=== PATIENT | male | born 1955 | race African-American/Black ===

== ENCOUNTER 2019-11-01 23:22 | Inpatient (IN) ==
[2019-11-02] MEDS ORDERED: TORADOL IV ONE (02:24)
[2019-11-02 02:25] LABS: ALB/GLOB RATIO 0.8; ALBUMIN 4.4 g/dL (3.5-5.0); CALCIUM 9.9 mg/dL (8.8-10.2); POTASSIUM 3.7 mmol/L (3.5-5.1); TOTAL BILIRUBIN 0.74 mg/dL (0.20-1.00)
--- NOTE | 2019-11-02 02:29 | PROVIDER DOCUMENTATION ---
This chart was entered by Kalee Elizabeth Scribe, acting as scribe for Mathew Carter MD. HPI-Abdominal Pain/GI Problem - General Source: patient - History of Present Illness-ABD Nature of Presenting Problems: Pt is a 64 yom who presents to the ED with a cc of severe RLQ abd pain that radiates to R testicle. States that the pain began this morning. Pt reports N/V that began 1 month prior to the abd pain. Reports occasional constipation. States that he cant keep food down. Abdominal Pain Onset Location: reports: RLQ (severe) Pain Radiation: reports: groin Quality of Pain: reports: aching, sharp Severity in ED: reports: mild Onset/Duration: reports: just prior to arrival Timing: reports: still present, constant Activities at Onset: reports: none Exposure to sick contacts?: No Modifying Factors: improves with: nothing Associated Symptoms: reports: nausea, vomiting, trouble walking Last BM: unsure Dark Stools Present?: reports: none noticed Rectal Bleeding: reports: none Rectal Pain: reports: none Emesis Description: reports: none Bruising or Bleeding Gums?: No Similar Symptoms Previously?: No Recently seen or treated by another doctor?: No <Mathew Carter - Last Filed: 11/02/19 02:33> <Robby Ortiz - Last Filed: 11/02/19 06:55> - General Chief Complaint: Abdominal Pain Stated Complaint: PAIN IN LEFT SIDE OF STOMACH Time Seen by Provider: 11/02/19 00:41 Allergies/Adverse Reactions: Patient Allergies Allergy/AdvReac Type Severity Reaction Status Date / Time No Known Allergies Allergy Verified 07/04/19 17:18 Home Medications: Home Medication List Medication Instructions Recorded Confirmed Last Taken Type Aspirin EC 81 mg PO DAILY 03/14/15 07/04/19 07/06/18 08:00 History 81 mg ATORVAstatin [Lipitor] 20 mg PO QHS #30 tablet 03/16/15 07/04/19 07/05/18 20:00 Rx 20 mg Folic Acid 1 mg PO DAILY tablet 11/27/17 07/04/19 07/06/18 08:00 Rx 1mg Thiamine [Vitamin B-1] 100 mg PO DAILY tablet 11/27/17 07/04/19 07/06/18 08:00 Rx 100 mg Potassium Chloride [Klor-Con M20] 1 tab PO DAILY 01/15/18 07/04/19 07/06/18 08:00 History 20 mEq Isosorbide Mononitrate E.r. [Imdur] 30 mg PO DAILY #90 tab 01/20/18 07/04/19 07/06/18 08:00 Rx 30mg Amiodarone [Cordarone] 200 mg PO DAILY #90 tab 02/26/18 07/04/19 07/06/18 08:00 Rx 200 mg Metoprolol Succinate E.r. [Toprol 25 mg PO DAILY #90 tab 02/26/18 07/04/19 07/06/18 08:00 Rx Xl] 25 mg Furosemide [Lasix] 40 mg PO DAILY #30 tab 07/08/18 07/04/19 Unknown Rx LISINOpril [Prinivil] 5 mg PO BID tablet 07/08/18 07/04/19 Unknown Rx Tramadol HCl [Ultram] 50 mg PO 4XDAY PRN PRN #12 tab 07/04/19 Unknown Rx Review of Systems - Adult - REVIEW OF SYSTEMS - ADULT Constitutional: reports: no symptoms reported Eyes: reports: no symptoms reported Ears, Nose, Mouth & Throat: reports: no symptoms reported Cardiovascular: reports: no symptoms reported Respiratory: reports: no symptoms reported Gastrointestinal: reports: see HPI, abdominal pain (severe RLQ), constipation (occasional), nausea, vomiting (prior to pain) Genitourinary: reports: no symptoms reported Musculoskeletal: reports: no symptoms reported Integumentary: reports: no symptoms reported Neurological: reports: no symptoms reported Psychiatric: reports: no symptoms reported Endocrine: reports: no symptoms reported Hematologic/Lymphatic: reports: no symptoms reported Allergic/Immunologic: reports: no symptoms reported All Other Systems: Reviewed and Negative <Mathew Carter - Last Filed: 11/02/19 02:33> Past History - Adult - PAST MEDICAL HISTORY-ADULT Major Childhood Illnesses: reports: denies history Cardiovascular: reports: CAD, HTN, hyperlipidemia Respiratory: reports: COPD, pneumonia Gastrointestinal: reports: hepatitis (C) Obstetrical/Gynecological: reports: denies history Genitourinary: reports: denies history Musculoskeletal: reports: denies history Neurological: reports: denies history Endocrine/Immune: reports: denies history Other Conditions: reports: denies history - PRIOR SURGERIES/PROCEDURES Surgical/Procedure History: reports: cardiac stent - IMMUNIZATION STATUS Childhood Immunizations: See Nurse Assessment Flu Vaccine: See Nurse Assessment - FAMILY HISTORY Family History: reviewed, not pertinent - SOCIAL HISTORY Smoking: cigarettes Provider spent 3-5 mins advising pt. on dangers of tobacco.: Discussed manners to quit use, and f/u contacts for add'l counseling. Substance Use: marijuana Alcohol Use Frequency: occasionally Living Situation: family <Mathew Carter - Last Filed: 11/02/19 02:33> - PAST MEDICAL HISTORY-ADULT Review of Records: reports: Nursing Assessment Review, Medications Reviewed, Social history reviewed & non-contributory. <Robby Ortiz - Last Filed: 11/02/19 06:55> Physical Exam-General - PHYSICAL EXAM-ADULT Initial Vital Signs Reviewed: No - CONSTITUTIONAL General Appearance: alert, no apparent distress - EYES Eyes: PERRL/EOMI, pink conjunctivae - HEAD, EARS, NOSE, MOUTH & THROAT HENMT: normocephalic/atraumatic, moist mucous membranes, normal ENT inspection, dental decay - NECK Neck: non-tender, full range of motion, supple, normal inspection - RESPIRATORY Respiratory: chest non-tender, lungs clear, normal breath sounds. negative: crackles, rhonchi - CARDIOVASCULAR Cardiovascular: normal peripheral pulses, regular rate, rhythm. negative: bradycardia, tachycardia - GASTROINTESTINAL (ABDOMEN) Abdominal Exam: non tender, soft, other (mild RLQ pain). negative: hernia - GENITOURINARY Male Genitalia: normal genitalia, normal prostate. negative: no hernia, hernia mass - MUSCULOSKELETAL Extremity: normal range of motion, non-tender, normal inspection - SKIN Integumentary: normal color, normal turgor, warm/dry. negative: ecchymosis, erythema - NEUROLOGIC Neurologic: grossly normal - PSYCHIATRIC Psych/Mental Status: normal mood/affect, normal thought content, normal thought process, oriented x 3 <Mathew Carter - Last Filed: 11/02/19 02:33> Progress - PLAN OF CARE/RESULTS Progress/Plan/Lab Results: Vital Signs - 8 hr 11/01/19 23:30 Temperature 98.1 F Pulse Rate 85 Respiratory Rate 20 Blood Pressure 166/103 O2 Sat by Pulse Oximetry 100 Result Diagrams: 11/02/19 01:58 11/02/19 01:58 - REASSESSMENT Reassessment #1 Time Reassessed: 02:26 Status: unchanged (patient is reporting pain. CT reveals moderate to advance r ight hydronephrosis with prox ureteric stone. Jean Pierre treat his pain. Labs pending) - CT/MRI 1 CT Study: Abdomen, Pelvis ( CT reveals moderate to advance right hydronephrosis with prox ureteric stone) - CHANGE OF SHIFT REPORT (ED Provider) 1 Report Given and Care Transferred to:: Dr Ortiz at the end of shift Time of Transfer: 02:34 <Mathew Carter - Last Filed: 11/02/19 02:33> - PLAN OF CARE/RESULTS Progress/Plan/Lab Results: Vital Signs - 8 hr 11/01/19 23:30 Temperature 98.1 F Pulse Rate 85 Respiratory Rate 20 Blood Pressure 166/103 O2 Sat by Pulse Oximetry 100 Laboratory Results - last 24 hr 11/02/19 11/02/19 01:58 01:58 WBC 8.64 RBC 4.42 L Hgb 14.5 Hct 44.4 MCV 100.5 H MCH 32.8 H MCHC 32.7 L RDW Std Deviation 12.1 Plt Count 269 MPV 10.5 H Immature Gran % (Auto) 0.2 Neut % (Auto) 78.2 H Lymph % (Auto) 12.4 L [place] % (Auto) 8.3 Eos % (Auto) 0.7 Baso % (Auto) 0.2 Immature Gran # (Auto) 0.02 Neut # (Auto) 6.75 H Lymph # (Auto) 1.07 L [place] # (Auto) 0.72 H Eos # (Auto) 0.06 Baso # (Auto) 0.02 Segmented Neutrophils Not Reportable Sodium 137 Potassium 3.7 Chloride 97 L Carbon Dioxide 26 Anion Gap 14 BUN 21 Creatinine 2.0 H Estimated GFR/1.73 m2 41 BUN/Creatinine Ratio 11 Glucose 104 Calculated Osmolality 277 Calcium 9.9 Total Bilirubin 0.74 AST 52 H ALT 29 Alkaline Phosphatase 69 Total Protein 10.0 H Albumin 4.4 Globulin 5.6 Albumin/Globulin Ratio 0.8 Amylase 134 Lipase 57 Orders Category Date Time Status Saline Loc DIRECTED Care 11/02/19 01:15 Active NPO Diet 11/02/19 01:[address] ABDOMEN/PELVIS W/O CONTRAST [CT] Stat Exams 11/02/19 01:15 Taken AMYLASE [CHEM] Stat Lab 11/02/19 01:58 Completed CBC WITH ELECTRONIC DIFF [HEME] Stat Lab 11/02/19 01:58 Completed COMPREHENSIVE METABOLIC PANEL [CHEM] Stat Lab 11/02/19 01:58 Completed LIPASE [CHEM] Stat Lab 11/02/19 01:58 Completed URINALYSIS W/POSS RFLX CULT [URINALYSIS] Stat Lab 11/02/19 01:15 Uncollected 0.9% Sodium Chloride Inj [Ns] 1,000 ml Med 11/02/19 02:32 Discontinued IV 999 mls/hr Ketorolac [Toradol] Med 11/02/19 02:24 Discontinued 15 mg IV NOW ONE Morphine Med 11/02/19 02:32 Discontinued 4 mg IV NOW ONE Ondansetron [Zofran] Med 11/02/19 02:32 Discontinued 4 mg IV NOW ONE Result Diagrams: 11/02/19 01:58 11/02/19 01:58 - REASSESSMENT Reassessment #2 Time Reassessed: 03:45 Status: improving Reassessment #3 Time Reassessed: 04:55 Status: improving (pt deep asleep, hard to wake up and be awake.) - CONSULTS/PCP/HOSPITALIST Notification #1 *Consult/PCP/Hospitalist*: Dr Landeros Time Discussed: 06:20 Consult Disposition: other (recommended hydration, renal function monitoring and out patient f/u.) #2 Consult: d/w Dr May Time Discussed: 06:40 Consult Disposition: Admit (for observation) <Robby Ortiz - Last Filed: 11/02/19 06:55> Departure <Mathew Carter - Last Filed: 11/02/19 02:33> - Departure Date of Disposition Decision: 11/02/19 Time of Disposition Decision: 05:39 Certified Medical Emergency: Emergent - Critical Care Note This patient required my direct & personal management of CC.: No <Robby Ortiz - Last Filed: 11/02/19 06:55> - Departure DIAGNOSIS: Renal colic on right side, Renal insufficiency, Acute on chronic renal failure, Ureteral stone with hydronephrosis Disposition: ADMITTED INPATIENT 09 Condition: Stable Additional Instructions: ED Follow Up Instructions: You have been treated by a care provider in the Emergency Department. These instructions are being provided to you so you can have an understanding of how to care for yourself upon discharge. Upon discharge from the Emergency Department, you are responsible for making arrangements for follow-up care by a physician of your choice. Take all prescribed medications as directed. Return to the Emergency Department immediately for any new or worsening symptoms. You may call the Physician Referral phone number at [phone] to obtain a list of Physicians who are taking new patients. Referrals and Follow-Ups: None,PCP [Primary Care Provider] - Arcadio Landeros MD [ACTIVE STAFF PHYSICIAN] - Attestation - Physician/ ANITA Attestation Patient care was provided by Advanced Practice Provider:: No The physician spent face to face time with patient:: Yes Advanced Practice Provider documentation review:: Supervising physician onsite and consulted in the evaluation and care of this patient. The physician did have a face to face encounter with the patient. <Mathew Carter - Last Filed: 11/02/19 02:33> This chart was documented by the indicated scribe, (Kalee Elizabeth Scribe) and accurately reflects the services I performed and decisions made by me, Mathew Carter MD, as attested by the provider's signature.
[2019-11-02] MEDS ORDERED: MORPHINE IV ONE (02:32)
[2019-11-02] MEDS ORDERED: NS 1,000 ML IV ONE (02:32)
[2019-11-02] MEDS ORDERED: ZOFRAN IV ONE (02:32)
[2019-11-02 03:38] LABS: BASO# 0.02 X1000 (0.0-0.2); BASO% 0.2 % (0.0-0.8); EOS# 0.06 X1000 (0.0-0.7); EOS% 0.7 % (0.0-10.0); HEMATOCRIT 44.4 % (42.0-52.0); HEMOGLOBIN 14.5 g/dL (14.0-18.0); IMM GRAN# 0.02 X1000 (0.0-0.04); IMM GRAN% 0.2 % (0.0-0.5); LYMPH# 1.07 X1000 (1.2-3.4); LYMPH% 12.4 % (20.5-51.1); MCH 32.8 PG (27-31); MCHC 32.7 g/dL (33-37); MCV 100.5 FL (81-99); MONO# 0.72 X1000 (0.11-0.59); MONO% 8.3 % (1.7-9.3); MPV 10.5 FL (7.4-10.4); NEUT# 6.75 X1000 (1.4-6.5); NEUT% 78.2 % (42.2-75.2); PLT 269 X1000 (130-400); RBC 4.42 XMIL (4.7-6.1); RDW 12.1 % (11.5-14.5); WBC 8.64 X1000 (4.8-10.8)
--- NOTE | 2019-11-02 05:47 | Diag Imaging Result Doc PS360 ---
EXAM: CT ABDOMEN/PELVIS W/O CONTRAST HISTORY: RLQ pain TECHNIQUE: CT abdomen and pelvis without oral or intravenous contrast COMPARISON: 11/14/2012 FINDINGS: No calcified gallstones or adjacent inflammation. No focal hepatic abnormality identified on this noncontrasted exam. No splenomegaly. The scattered hepatic and splenic granuloma. No inflammation about the pancreas. Mild thickening to the left adrenal gland which may represent a nodule measuring approximately a centimeter. No left renal stone or left-sided hydronephrosis. Prominent perinephric inflammation about the right kidney. Several nonobstructing right renal stones. There is also a 4 x 5 x 7 mm proximal right ureteral stone with mild hydronephrosis. Severe atherosclerosis. No aortic aneurysm. Normal appendix. No abscess. No bowel obstruction. The urinary bladder is moderately distended and appears normal. There may be a small right-sided bladder diverticulum. The prostate measures 5.0 cm in diameter. IMPRESSION: 1.7 mm proximal right ureteral stone with perinephric inflammation and mild hydronephrosis 2.There are other nonobstructing right renal stones 3.Prominent atherosclerosis 4.A preliminary report was given at 1:59 AM This exam was performed using automated exposure control, adjustment of mA or kV according to patient size, and/or use of iterative reconstruction technique. Electronically signed by Barry Astorga 11/02/2019 5:45 AM
[2019-11-02] MEDS ORDERED: NS 1,000 ML IV SCH ×2 (06:45→07:00)
[2019-11-02] MEDS ORDERED: ZOFRAN IV PRN (06:53)
[2019-11-02 06:57] LABS: URINE SOURCE CLEAN CATCH
[2019-11-02] MEDS ORDERED: NS 500 ML IV ONE (07:28)
[2019-11-02 07:31] LABS: BILIRUBIN URINE SMALL (NEGATIVE); BLOOD URINE LARGE (NEGATIVE); CLARITY CLEAR (CLEAR); COLOR YELLOW; GLUCOSE URINE NEGATIVE (NEGATIVE); KETONE URINE 15 mg/dL (NEGATIVE); LEUKOCYTES URINE NEGATIVE (NEGATIVE); NITRITE URINE NEGATIVE (NEGATIVE); PH URINE 5.5; PROTEIN URINE TRACE mg/dL (NEGATIVE); SP GRAVITY URINE 1.025; UROBILINOGEN URINE 0.2 EU/dL (0.2-1.0)
[2019-11-02 08:03] LABS: URINE BACTERIA 1+ /HFP; URINE EPITHELIAL CELLS <10 /HPF (<10); URINE RBC 20-40 /HPF (<10); URINE WBC <10 /HPF (<10)
[2019-11-02] MEDS: ROCEPHIN 1 GM in NS 50 ML IV SCH (08:14)
[2019-11-02] MEDS: MORPHINE IV PRN ×3 (08:33→19:08)
[2019-11-02] MEDS ORDERED: ASPIRIN PO SCH (09:00)
--- NOTE | 2019-11-02 09:36 | EKG Report ---
Test Performed on : 11/02/2019 09:03:44 AM Test Reason : Baseline EKG Blood Pressure : / mmHG Vent. Rate : 076 BPM Atrial Rate : 076 BPM P-R Int : 154 ms QRS Dur : 136 ms QT Int : 494 ms P-R-T Axes : 057 -43 083 degrees QTc Int : 555 ms Atrial-sensed ventricular-paced rhythm Abnormal ECG When compared with ECG of 06-JUL-2018 14:29, Vent. rate has increased BY 3 BPM Unconfirmed Result
[2019-11-02] MEDS: CORDARONE PO SCH (09:56)
[2019-11-02] MEDS: TOPROL XL PO SCH (09:57)
[2019-11-02] MEDS ORDERED: AMIDATE ONE (11:17)
[2019-11-02] MEDS ORDERED: XYLOCAINE-MPF 2% ONE ×2 (11:17→11:27)
[2019-11-02] MEDS ORDERED: FENTANYL ONE (11:25)
[2019-11-02] MEDS ORDERED: DECADRON ONE (11:38)
[2019-11-02] MEDS ORDERED: ZOFRAN ONE (11:38)
[2019-11-02] MEDS ORDERED: QUELICIN (DOSE) ONE (11:41)
[2019-11-02] MEDS ORDERED: NS 1,000 ML ONE (12:17)
[2019-11-02] MEDS: IMDUR PO SCH (13:24)
[2019-11-02] MEDS: NS 1,000 ML IV SCH (13:27)
--- NOTE | 2019-11-02 15:05 | HISTORY AND PHYSICAL ---
CHIEF COMPLAINT: Right lower quadrant abdominal pain, nausea and vomiting since two days' duration. HISTORY OF PRESENT ILLNESS: Mr. Cifuentes is a 64-year-old man with: 1. History of nonischemic cardiomyopathy with ejection fraction of 20% status post AICD and pacemaker. 2. Essential hypertension. 3. Hyperlipidemia. 4. Chronic hepatitis C. 5. Active tobacco abuse. 6. History of cocaine abuse. The patient comes in with chief complaint of right lower quadrant abdominal pain since about 24 hours duration. The patient was in the usual state of health until on the day of presentation morning time when he suddenly started experiencing right lower quadrant abdominal pain. The pain was episodic, spasmodic, 10 on 10 intensity, located in right lower abdominal quadrant and radiating towards the right groin. Associated with this, he also had nausea, vomiting. He was not able to eat anything because of his nausea and vomiting. He did not have any hematuria. He never had experienced such pain before, so he had decided to come to the emergency room. In the emergency room, he was found to be hemodynamically stable without any fever or leukocytosis. However, he did have kidney dysfunction with creatinine of 2, so a CT scan of the abdomen and pelvis was performed which has suggested right-sided ureteric stone with hydronephrosis, so the hospitalist team was consulted for further management. At the time of my evaluation, Mr. Cifuentes still complains of right lower quadrant abdominal pain and is asking for pain medication. He is still feeling nauseous. He has not had any vomiting in the last 2 to 4 hours at least. He denies any chest pain, shortness of breath, or cough. He states that he takes his medications regularly. However, he could not name to many medications. He states he could not he remember if he was on any blood thinners. REVIEW OF SYSTEMS: Negative for headache. Negative for blurring of vision. Negative for chest pain. Negative for shortness of breath. Positive for nausea, vomiting and abdominal pain. Negative for hematuria. Negative for constipation or diarrhea. PAST MEDICAL HISTORY: 1. Nonischemic cardiomyopathy with ejection fraction of 15 to 20 percent status post AICD. 2. History of coronary artery disease with bare metal stent in the right coronary artery in 2010. 3. Medication noncompliance. 4. Alcohol abuse. 5. History of hepatitis C. PAST SURGICAL HISTORY: Pacemaker implantation. CURRENT MEDICATION: He could not tell me the medications he was supposed to be taking currently. However, according to previous discharge summary, he was on: 1. Amiodarone 200 mg daily. 2. Metoprolol succinate 25 mg daily. 3. Aspirin 81 mg daily. 4. Thiamine 100 mg daily. 5. Folic acid 1 mg daily. 6. Imdur extended release 30 mg daily. 7. Furosemide 40 mg daily. 8. Lisinopril 5 mg b.i.d. 9. Tramadol 50 mg four times a day as needed. MEDICATION ALLERGY: No known allergy. FAMILY HISTORY: Noncontributory. CURRENT VITALS: Temperature of 98.1 degrees, pulse 85, respiratory 20, blood pressure 160/102, saturating 100% on room air. PHYSICAL EXAMINATION: GENERAL EXAMINATION: He is not in acute distress. ORAL CAVITY: Has poor dental hygiene and missing teeth. No pharyngeal congestion. LUNGS: Air entry bilaterally equal. No wheeze, rhonchi, crackles. CARDIOVASCULAR: S1, S2 normal. No murmur, rub, or gallop. He has a left-sided chest wall AICD or pacemaker. ABDOMEN: Soft. Mild tenderness in the right lower quadrant. No guarding or rigidity or rebound. Active bowel sounds. No costovertebral angle tenderness. EXTREMITIES: Lower extremity has significant scaling and dry skin without any edema. NEUROLOGIC: He is alert and oriented x3. LABS: Suggestive of WBC of 8.6, hemoglobin 14.5, platelet 269. BUN of 21, creatinine of 2. Urinalysis is pending. IMAGING: Abdomen and pelvis CT had 7 mm proximal right ureteral stone with perinephric inflammation and mild hydronephrosis. Other nonobstructing right renal stones and prominent atherosclerosis. ASSESSMENT AND PLAN: 1. Right proximal ureteric stone with hydronephrosis with acute right-sided pyelonephritis. The patient received 1 L of intravenous fluids. I will give him additional 500 mL of intravenous fluids. I will start him on intravenous ceftriaxone and follow up urinalysis and reflex culture. I will also consult Urology for further intervention. I will keep him on intravenous morphine as needed for pain. 2. History of coronary artery disease requiring bare metal stent in 2010, as well as chronic systolic congestive heart failure with ejection fraction of 20% in 2018. He currently does not have any clinical features of acute heart failure exacerbation. I will continue his home medications of aspirin, statin, metoprolol, amiodarone, isosorbide. I will also order an electrocardiogram for preoperative evaluation if in case he needs to go for operative intervention. 3. Acute kidney injury. His baseline creatinine is around 1.2 to 1.5. His current acute kidney injury could be related to poor oral intake, nausea and vomiting, and he certainly has right- sided proximal ureteric stone with hydronephrosis. I will give him gentle intravenous fluids and follow up with repeat basic metabolic panel. DISPOSITION: I will admit the patient inside the hospital as I monitor his BMP and await further Urology recommendations. Plan of care discussed with the patient. His questions have been answered. cc: Donnell May MD
--- NOTE | 2019-11-02 15:07 | Diag Imaging Result Doc PS360 ---
EXAM: RETROGRADES 2 OR 3 FILMS HISTORY: BILATERAL RETROGRADES/ RT STENT TECHNIQUE: 16 films submitted COMPARISON: None. FINDINGS: Left retrograde filling of the ureter. No obstruction to retrograde flow. There are filling defects at the UPJ believed to be air bubbles. Normal distention of the renal pelvis and calyces. Right retrograde performed. There is a filling defect in the upper to mid right ureter consistent a stone. A wire was placed in the ureter. A stent was placed over the wire and the wire was removed. IMPRESSION: Proximal right ureteral stone with a right ureteral stent placed. Electronically signed by Barry Astorga 11/02/2019 3:04 PM
--- NOTE | 2019-11-02 16:57 | CONSULTATION ---
DATE OF CONSULTATION: 11/02/2019 CHIEF COMPLAINT: Right flank pain. HISTORY OF PRESENT ILLNESS: Mr. Cifunetes is a 64-year-old with coronary artery disease, hepatitis C, congestive heart failure, hypertension, hyperlipidemia, and COPD, who presents in consultation regarding right lower quadrant abdominal pain. The patient states he had significant pain that started overnight and into this morning, presented to the emergency room complaining of right lower quadrant and right testicular pain. CT scan was performed which showed a stone obstructing the right proximal ureter with associated stranding of the kidney and ureter itself. The patient denies any vomiting, but has been having nausea. He denies having kidney stones previously. He states the pain radiates into his groin. He rates his pain as consistently a 10/10 with minimal relief with medications. He denies significant back pain. States the pain is present in his lower quadrant. Denies any fevers or chills. He denies any prior bladder or renal surgeries. He denies seeing a urologist previously next. He has ICD and history of cardiac stenting. He denies eating since last night. ALLERGIES: No known drug allergies. MEDICATIONS: 1. Atorvastatin 20 mg p.o. daily. 2. Folic acid 1 mg p.o. daily. 3. Thiamine 100 mg p.o. daily. 4. Potassium chloride 1 tablet daily. 5. Amiodarone 200 mg p.o. daily. 6. Metoprolol 25 mg p.o. daily. 7. Lasix 40 mg. 8. Lisinopril 5 mg p.o. b.i.d. PAST SURGICAL HISTORY: 1. Coronary artery stenting. 2. ICD and Pacemaker PAST MEDICAL HISTORY: 1. Coronary artery disease. 2. Hypertension. 3. Hyperlipidemia. 4. COPD. 5. Hepatitis C. 6. Congestive Heart Failure FAMILY HISTORY: Denies family history of malignancies. SOCIAL HISTORY: Daily tobacco use. Occasional marijuana use. Occasional alcohol use. REVIEW OF SYSTEMS: 12 point review of systems performed with all pertinent positives and negatives in HPI. PHYSICAL EXAMINATION: Vital Signs: Temperature 98.1 degrees, heart rate 85, blood pressure 166/103 oxygen saturation 100 percent on room air. General: Mild distress, alert and oriented x3. Respiratory: Good respiratory effort without audible wheezing or rales. HEENT: Normocephalic, atraumatic. Pupils equal, round, reactive to light, poor dentition.Neck: Trachea midline without masses. Cardiovascular: Regular rate and rhythm. Abdomen: Soft, nondistended, slight tenderness in the right lower quadrant. : No suprapubic tenderness. No CVA tenderness. Normal phallus, uncircumcised with orthotopic meatus. Bilateral testicles palpated without asymmetry. Slight tenderness to palpation of the right testicle. No palpable hernias, varicoceles or hydroceles. Musculoskeletal: Moving all extremities. Skin: No skin lesions or rashes. Neurologic: Gross motor and sensory intact next. LABS: White blood cell count 8.6, hemoglobin 14.5, hematocrit 44.4, and platelets 269,000. Sodium 137, potassium 3.7, chloride 97, BUN 21, creatinine 2.0 glucose 104, AST 52, ALT 29. Urinalysis showed a large amount of blood, negative nitrites, negative white blood cells. IMAGING: CT abdomen and pelvis images reviewed, which shows a 4 x 7 mm stone present in the proximal right ureter with associated hydronephrosis and stranding around the kidney and several smaller stones were seen within the right kidney. The patient's prostate is slightly enlarged. No evidence of any bladder masses on imaging via noncontrast imaging. ASSESSMENT AND PLAN: Mr. Cifuentes is a 64-year-old who presented to the emergency room complaining of right lower quadrant abdominal pain and testicular pain. The patient had a CT scan which showed evidence of an obstructing proximal ureteral stone measuring 4 x 7 mm with associated hydronephrosis and perinephric stranding. The patient remains afebrile with low white blood cell count. Creatinine has been elevated up to 2.0 from baseline around 1.3. The patient has acute kidney injury with obstructive uropathy. I recommended cystoscopy and right ureteral stent placement and discussion for future surgical management of his stone when the acute kidney injury resolves. There was a large amount of stranding around the kidney concern arises for possible infection due to obstruction. We will place a stent and follow up in the outpatient setting regarding further management of his kidney stone. Discussed this with the patient today. Continue n.p.o. in preparation for surgery this morning. He will be admitted to the hospitalist postoperatively for followup and optimization of renal function prior to discharge. We will continue to monitor from a urologic standpoint. Please call with questions or concerns. cc: Arcadio Landeros MD [facility]ENTERRadha
[2019-11-02] MEDS: PERIDEX MT SCH (20:18)
[2019-11-02] MEDS: LIPITOR PO SCH (20:18)
--- NOTE | 2019-11-02 22:58 | OPERATIVE NOTE ---
PROCEDURE DATE: 11/02/2019 PREOPERATIVE DIAGNOSES: 1. Right hydronephrosis. 2. Right ureteral stone. 3. Acute on chronic kidney disease. 4. Pyelonephritis. POSTOPERATIVE DIAGNOSES: 1. Right hydronephrosis. 2. Right ureteral stone. 3. Acute on chronic kidney disease. 4. Pyelonephritis. 5. Bulbar urethral stricture. PROCEDURE PERFORMED: 1. Cystoscopy with bilateral retrograde pyelograms. 2. Right ureteral stent placement. SURGEON: Arcadio Landeros MD. [employer] ADJUSTER: None. COMPLICATIONS: None. BLOOD LOSS: Minimal. DRAINS: A 6 x 26 cm right ureteral stent. SPECIMENS REMOVED: Urine for culture. OPERATIVE FINDINGS: The patient had a normal anterior urethra entered into the bulbar urethra and a thin wide Cymro stricture was seen several mm in length, was able to advance through this and into the prostate itself. The prostate was slightly enlarged with a small median lobe. Once into the bladder, the patient had a wide-mouth diverticulum on the right side of the bladder. A small amount of trabeculations were seen throughout. No papillary lesions or stones were seen within the bladder itself. Left retrograde pyelogram showed a delicate collecting system with no evidence of obstruction. The right side showed a filling defect in the mid to proximal ureter corresponding with evidence of stone. The patient had a stent placed which drained a moderate amount of purulent material and sedimentary urine, which was sent for urine culture. INDICATION FOR PROCEDURE: Mr. Cifuentes is a 64-year-old who presented to the emergency room complaining of right flank pain that radiated into his scrotum on the right side. He had a CT scan performed which showed a proximal right ureteral stone measuring approximately 4 mm causing obstruction. There was a large amount of stranding around the right kidney and concern for possible infection. The patient was having significant pain, in talking with him, I recommended cystoscopy with retrograde pyelogram and right ureteral stent placement. Risks, benefits, alternatives surgical procedure discussed with patient, patient elected to proceed. DESCRIPTION OF PROCEDURE: After informed consent was obtained, patient brought to the operating room, placed on the operating table in supine position. Patient received preoperative antibiotics on the floor. He underwent LMA placement in the operating room. He was then positioned to a dorsal lithotomy position, was prepped and draped in usual sterile fashion. A preoperative time-out was then performed with all parties in agreement, including anesthesia, surgical, and nursing staff. At which point, I inserted a 21-Cymro cystourethroscope through the urethra into the bladder. The patient had a normal anterior urethra until reaching the bulbar urethra, which showed a thin relatively large diameter stricture that was up a few mm in length. I was able to advance the cystourethroscope easily through this and into the prostate. The prostate shows small amount of hypertrophy with a small median lobe. Once inside the bladder, the entirety of the bladder was inspected with a large diverticulum seen in the right side of the bladder. No evidence of any papillary lesions or bladder stones. A small amount of trabeculations were seen throughout. The patient's bladder was irrigated several times. Open catheter was then passed through the scope and attempted to cannulate the left ureteral orifice. This was slightly narrowed, ultimately I had to use a wire into the ureteral orifice and was able to advance the ureteral catheter into the distal left ureter. Retrograde pyelogram was then performed, which outlined a normal ureter that was slightly small with a delicate collecting system with no evidence of any hydronephrosis and good drainage was seen on postdrainage films. Attention was then placed to the right side. The ureteral orifice was easily cannulated and performed a retrograde pyelogram which outlined the ureter that was quite narrow with a filling defect in the mid to proximal ureter corresponding to location of stone. There was evidence of hydronephrosis within the kidney itself. At which point, a ZIPwire was then passed through the scope and through the open-ended catheter up into the collecting system itself. A small amount of sedimentary urine returned. The ZIPwire was left in place. The open catheter was completely removed and a 6 x 26 cm right ureteral stent was advanced over the wire with good curl seen within the kidney and endoscopically visualized in the bladder. A large amount of sedimentary urine and what appeared to be likely infection drained from the kidney itself. This was obtained and sent for urine culture. The patient's bladder was decompressed. He was awoken and was taken to recovery in stable condition. DISPOSITION: Patient will be transferred back to the floor for observation. We will follow up urine culture and treat with culture-specific antibiotics. cc: MD ARIAS Dorman
[2019-11-02 23:26] LABS: CALCIUM 8.6 mg/dL (8.8-10.2); CREATININE 1.9 mg/dL (0.7-1.2); POTASSIUM 4.6 mmol/L (3.5-5.1)
[2019-11-03] MEDS: NS 1,000 ML IV SCH (01:46)
[2019-11-03] MEDS: ROCEPHIN 1 GM in NS 50 ML IV SCH (06:20)
[2019-11-03 07:31] LABS: BASO# 0.01 X1000 (0.0-0.2); BASO% 0.1 % (0.0-0.8); EOS# 0.01 X1000 (0.0-0.7); EOS% 0.1 % (0.0-10.0); HEMATOCRIT 36.5 % (42.0-52.0); HEMOGLOBIN 11.6 g/dL (14.0-18.0); IMM GRAN# 0.02 X1000 (0.0-0.04); IMM GRAN% 0.2 % (0.0-0.5); LYMPH# 1.17 X1000 (1.2-3.4); LYMPH% 10.1 % (20.5-51.1); MCH 32.8 PG (27-31); MCHC 31.8 g/dL (33-37); MCV 103.1 FL (81-99); MONO# 0.78 X1000 (0.11-0.59); MONO% 6.8 % (1.7-9.3); MPV 11.2 FL (7.4-10.4); NEUT# 9.56 X1000 (1.4-6.5); NEUT% 82.7 % (42.2-75.2); PLT 236 X1000 (130-400); RBC 3.54 XMIL (4.7-6.1); RDW 11.8 % (11.5-14.5); WBC 11.55 X1000 (4.8-10.8)
[2019-11-03 07:58] LABS: CALCIUM 8.8 mg/dL (8.8-10.2); CREATININE 1.7 mg/dL (0.7-1.2); POTASSIUM 4.3 mmol/L (3.5-5.1)
[2019-11-03] MEDS: CORDARONE PO SCH (08:54)
[2019-11-03] MEDS: PERIDEX MT SCH ×2 (08:54→22:25)
[2019-11-03] MEDS: IMDUR PO SCH (08:54)
[2019-11-03] MEDS: TOPROL XL PO SCH (08:54)
--- NOTE | 2019-11-03 11:16 | PROGRESS NOTE ---
DATE: 11/03/2019 SUBJECTIVE: Postop day 1 from cystoscopy, right ureteral stent placement, bilateral retrograde pyelograms. Seems to be stable since his procedure yesterday. He denies any nausea or vomiting. He has occasional pain with urination, but feels like this is well controlled. He denies any fevers or chills. He has been tolerating good p.o. intake. He denies urgency, frequency, or dysuria. He has had small amount of reddish urinary output. OBJECTIVE: Vital Signs: Temperature 98.4 degrees, heart rate 60, blood pressure 168/92, oxygen saturation 90% on room air. General: No acute distress. Resting comfortably in bed. Alert and oriented x3. Respiratory: Good respiratory effort, without audible wheezing or rales. Abdomen: Soft, nontender, nondistended. : No suprapubic tenderness. No CVA tenderness. The patient has slightly red-tinged urine in bedside urinal. LABORATORY DATA: White blood cell count 11.6, hemoglobin 11.6, hematocrit 36.5, platelets 236,000. Sodium 140, potassium 4.3, chloride 106, bicarb 24, BUN 18, creatinine 1.7, glucose 115. ASSESSMENT AND PLAN: Mr. Cifuentes is a 64-year-old with coronary artery disease, hypertension, hyperlipidemia, chronic obstructive pulmonary disease, congestive heart failure, and hepatitis C, who presents in consultation regarding obstructed right ureteral stone. The patient was taken to the operating room yesterday for cystoscopy, bilateral retrograde pyelograms, and right ureteral stent placement. The patient had a large amount of sedimentary urine return. Overall, the patient seems to be much improved today. He feels like his pain has resolved. Occasionally has some pain when he urinates, but this causes him minimal bother. He has remained afebrile with stable vital signs. His white blood cell count increased today to 11.5, with creatinine downtrending at 1.7. Will continue to monitor clinically. Will keep at least 1 more day, and follow up urine culture, which hopefully should return later today. Will continue to monitor from a urologic standpoint. Please call with questions or concerns. cc: MD ARIAS Dorman
[2019-11-03] MEDS: ASPIRIN EC PO SCH (11:45)
[2019-11-03] MEDS: LASIX PO SCH (11:45)
[2019-11-03] MEDS: FOLIC ACID PO SCH (11:45)
[2019-11-03] MEDS: VITAMIN B-1 PO SCH (11:46)
[2019-11-03] MEDS: MORPHINE IV PRN (15:37)
[2019-11-03] MEDS: LIPITOR PO SCH (22:25)
--- NOTE | 2019-11-04 04:39 | PROGRESS NOTE ---
DATE: 11/03/2019 SUBJECTIVE: The patient is resting comfortably in bed. He has no complaints at this time. OBJECTIVE: Vital Signs: Temperature 98.5 degrees, blood pressure 144/92, heart rate 61, respirations 16, O2 saturation 100% on room air. General: This is a chronically ill-appearing, elderly male lying in bed in no acute distress. Heart: S1, S2 normal. Regular rate and rhythm. Lungs: Clear to auscultation bilaterally. Abdomen: Positive bowel sounds. Soft, nontender, nondistended. Extremities: No edema. No cyanosis. Neurologic: The patient is alert and oriented x3. LABS: White blood cell count 11, hemoglobin 11, hematocrit 36, platelets 236,000, sodium 140, potassium 4.3, BUN 18, creatinine 1.7. Urine culture: no growth. ASSESSMENT AND PLAN: 1. Status post cystoscopy with right ureteral stent placement secondary to right hydronephrosis with right ureteral stone with pyelonephritis. Continue with antibiotic therapy. Further management as directed by the urologist. 2. Hepatitis C. Aware. 3. Nonischemic cardiomyopathy s/p ICD. Continue on the current cardiac medications. 4. Acute kidney injury on chronic kidney disease. Improved. 5. Deep vein thrombosis prophylaxis. We will start the patient on heparin. cc: Clary Mike MD MTDD
[2019-11-04 07:32] LABS: HEMATOCRIT 36.6 % (42.0-52.0); HEMOGLOBIN 11.6 g/dL (14.0-18.0); MCH 32.9 PG (27-31); MCHC 31.7 g/dL (33-37); MCV 103.7 FL (81-99); MPV 11.4 FL (7.4-10.4); RBC 3.53 XMIL (4.7-6.1); WBC 8.58 X1000 (4.8-10.8)
--- NOTE | 2019-11-04 07:59 | PROGRESS NOTE ---
DATE: 11/04/2019 SUBJECTIVE: Postoperative day 2 from cystoscopy, bilateral retrograde pyelograms, and right ureteral stent placement. Overall, the patient states he has been doing well. He denies significant pain. He notes that sometimes when he urinates, he feels pain in his side, but this is manageable. He denies any nausea or vomiting. He is tolerating p.o. intake. He has been voiding multiple times and had multiple bowel movements. PHYSICAL EXAMINATION: Vital Signs: Temperature 98 degrees, heart rate 60, blood pressure 162/89, oxygen saturation 99% on room air. General: No acute distress. Resting comfortably in bed. Alert and oriented x3. Respiratory: Good respiratory effort, without audible wheezing or rales. Abdomen: Soft, nontender, nondistended. : No suprapubic tenderness. No CVA tenderness. ASSESSMENT AND PLAN: Mr. Cifuentes is a 64-year-old with coronary artery disease, hypertension, hyperlipidemia, chronic obstructive pulmonary disease, congestive heart failure, and hepatitis C, seen is consultation regarding obstructing right ureteral stone. He was taken to the operating room on Monday, and had cystoscopy, bilateral retrograde pyelograms, and right ureteral stent placement. He had a large amount of sedimentary urine that returned from his right kidney. He seems to be doing well. His urine culture showed no growth from 11/02/2019. Will continue to monitor this. Likely had an infection, but may have been treated appropriately with antibiotics. I think clinically, if his labs show that he has continued downtrending of his creatinine, then he likely could be discharged in the coming days. Will write him a prescription for antibiotics, pain medication, and stent discomfort medication. Will continue to monitor while inpatient. Please call with questions or concerns. cc: Arcadio Landeros MD [facility]
[2019-11-04 08:02] LABS: CALCIUM 8.6 mg/dL (8.8-10.2); CREATININE 1.5 mg/dL (0.7-1.2); POTASSIUM 4.1 mmol/L (3.5-5.1)
[2019-11-04] MEDS: LASIX PO SCH (08:53)
[2019-11-04] MEDS: FOLIC ACID PO SCH (08:53)
[2019-11-04] MEDS: CORDARONE PO SCH (08:53)
[2019-11-04] MEDS: VITAMIN B-1 PO SCH (08:53)
[2019-11-04] MEDS: IMDUR PO SCH (08:53)
[2019-11-04] MEDS: TOPROL XL PO SCH (08:53)
[2019-11-04] MEDS: ASPIRIN EC PO SCH (08:53)
[2019-11-04] MEDS: PERIDEX MT SCH (08:53)
[2019-11-04] MEDS: ROCEPHIN 1 GM in NS 50 ML IV SCH (08:54)
[2019-11-04] MEDS: MORPHINE IV PRN (09:05)
[2019-11-04 12:08] VITALS: BP 159/87
[2019-11-04] MEDS ORDERED: NORCO-10 PO ONE (14:10)
--- NOTE | 2019-11-10 07:55 | DISCHARGE SUMMARY ---
ADMISSION DATE: 11/02/2019 DISCHARGE DATE: 11/04/2019 FINAL DISCHARGE DIAGNOSES: 1. Acute right-sided pyelonephritis with a right proximal ureteral stone with hydronephrosis, status post cystoscopy with right ureteral stent placement. 2. Hepatitis C. 3. History of cocaine abuse. 4. Nonischemic cardiomyopathy, status post implantable cardioverter defibrillator. 5. Acute kidney injury on chronic kidney disease. 6. Hypertension. CONSULTATIONS: Urology consultation with Dr. Landeros. PROCEDURES: 1. Cystoscopy with bilateral retrograde pyelograms. 2. Right ureteral stent placement. HOSPITAL COURSE: Mr. Cifuentes is a 64-year-old male with a history of multiple medical problems, who presented to the ER with a chief complaint of right lower quadrant pain and 2 days of nausea and vomiting. On admission, a CT of the abdomen and pelvis was done that revealed a 1.7 mm proximal right ureteral stone with mild hydronephrosis. In light of these findings, the patient was admitted to the Hospitalist Service. Urology was consulted. A urine culture was obtained, and the patient was started on antibiotic therapy as well as IV fluids. Urology was consulted, and the patient was taken to the OR on 11/02/2019, at which time a cystoscopy was done with right ureteral stent placement. The patient did well postoperatively. Ultimately, the urine culture showed no growth. However, there was still concern that the patient did have an infection, so antibiotics were continued. The patient was noted to be in acute kidney injury on chronic kidney disease. With IV fluids and the urologic intervention, the patient's BUN and creatinine improved. The patient continued to improve clinically, and was transitioned to oral antibiotic therapy. The patient was then discharged home on 11/04/2019. DISCHARGE MEDICATIONS: 1. Ceftin 250 mg oral every 12 hours. 2. Flomax 0.4 mg oral daily. 3. Oxy IR 5 mg oral every 6 hours p.r.n. for pain. 4. Aspirin 81 mg p.o. daily. 5. Lipitor 20 mg oral at bedtime. 6. Folic acid 1 mg oral daily. 7. Thiamine 100 mg oral daily. 8. Potassium chloride 1 tablet oral daily. 9. Imdur 30 mg oral daily. 10. Amiodarone 200 mg oral daily. 11. Toprol-XL 25 mg oral daily. 12. Lasix 40 mg p.o. daily. 13. Lisinopril 5 mg oral twice a day. 14. Tramadol 50 mg p.o. 4 times a day p.r.n. for pain. DISCHARGE DIET: Low-sodium, low-cholesterol diet. ACTIVITY: As tolerated. FOLLOWUP INSTRUCTIONS: The patient will need to follow up with Dr. Landeros as scheduled by his clinic. cc: Clary Mike MD
== END 2019-11-04 14:35 | disposition home health service (06) | DRG 660 ==
LOC: ED 23:22 → 4N 11-02 09:28 → SUATTDRO 11-02 09:28
PROVIDERS: ATTEND Internal Medicine